=== PATIENT | female | born 1945 | race Caucasian/White ===

== ENCOUNTER → 2020-09-05 10:58 | Outpatient (BNVA) | payer BC, SELFPAY | PROVIDERS: PCP Internal Medicine; Visit Provider Internal Medicine Cardiovascular Disease | DX: I48.0 Paroxysmal atrial fibrillation (principal); I10 Essential (primary) hypertension; M79.605 Pain in left leg | CPT/HCPCS: 93005 ==

== ENCOUNTER → 2021-02-22 10:47 | Outpatient (BNVA) | payer BC, SELFPAY | PROVIDERS: PCP Internal Medicine; Referring Provider Internal Medicine; Visit Provider Internal Medicine Cardiovascular Disease | DX: I48.0 Paroxysmal atrial fibrillation (principal); I10 Essential (primary) hypertension | CPT/HCPCS: 93005 ==

== ENCOUNTER → 2021-08-21 11:04 | Outpatient (BNVA) | payer BC, SELFPAY | PROVIDERS: PCP Internal Medicine; Visit Provider Internal Medicine Cardiovascular Disease | DX: R06.02 Shortness of breath (principal); I48.0 Paroxysmal atrial fibrillation | CPT/HCPCS: 93005 ==

== ENCOUNTER → 2021-10-04 13:55 | Outpatient (REF) | payer BC, SELFPAY ==
--- NOTE | 2021-10-04 14:03 | CA_ITS ---
Transthoracic Echocardiogram Patient (Last, First, Middle): Shivani Springer, Gender: Female Date of : 1945 Age: 75 Procedure Date: 10/04/2021 Procedure Type: Transthoracic Echocardiogram Location: OP Height: 154.94 cm Weight: 54.43 kg BSA: 1.52 m2 Heart Rate: bpm BP: 125 / 80 mmHg Pc Installation Engineer: JIMMY Referring MD: Varinder Palafox MD Symptoms: R06.02 - Shortness of breath Study Quality: Fair ECG Rhythm: Sinus Conclusions: - The left ventricular systolic function is normal. The calculated ejection fraction is 60% by biplane method. - Evidence suggests grade II (moderate) diastolic dysfunction. - No obvious valvular pathology seen on this study. Findings Left Ventricle Normal left ventricular cavity size. There is normal left ventricular wall thickness. The left ventricular systolic function is normal. The calculated ejection fraction is 60% by biplane method. There is no evidence of regional wall motion abnormalities. E/E prime ratio is between 8 and 15 consistent with indeterminate filling pressures. Evidence suggests grade II (moderate) diastolic dysfunction. Right Ventricle Normal right ventricular cavity size and systolic function. Atria Both atria are normal in size. Aortic Valve There is a normal trileaflet aortic valve. There is no aortic valve stenosis. There is trace (trivial) aortic valve regurgitation. Mitral Valve The mitral valve appears normal. There is trace mitral valve regurgitation. There is no mitral valve stenosis. Pulmonic Valve The pulmonic valve was not well visualized. Tricuspid Valve Normal tricuspid valve structure. There is trace tricuspid valve regurgitation. The pulmonary artery systolic pressure is normal. Great Vessels The aortic annulus, sinuses of valsalva, asc aorta, and aortic arch are normal in size. Venous The inferior vena cava is normal in size and collapses greater than 50% with inspiration. Pericardium/Pleural There is no evidence of pericardial effusion. Recommendations, Care & Conclusions No obvious valvular pathology seen on this study. Measurements 2D Linear Measurements IVSd: 0.91 0.6-0.9/0.6-1.0 cm LVIDd: 4.11 3.9-5.3/4.2-5.9 cm LVIDd Index: 2.70 2.4-3.2/2.2-3.1 cm/m2 LVIDs: 2.88 2.0-3.6 cm LVPWd: 0.79 0.7-1.1 cm Ao Root: 2.70 2.1-3.5 cm LA Diam: 3.20 2.7-3.8/3.0-4.0 cm LAIDs Index: 2.11 1.5-2.3 cm/m2 LV Mass: 131.87 67-162/88-224 g LV Mass Index: 86.76 43-95/49-115 g/m2 LVOT Diam: 1.90 3.0+(-)1.3 cm 2D Systolic Function EF 4C: 62.10 >55% EF 2C: 59.10 >55% EF BiP: 59.80 >55% Mitral Valve MV Pk E: 0.86 MV PK A: 0.46 MV Decel Time: 154.00 E/A: 1.90 E'Lateral: 6.74 E'Medial: 8.59 E/E' Med: 10.00 E/E' Lat: 12.70 PHT: 45.00 MVA PHT: 4.89 Decel [place]: 5.56 Aortic Valve AoV Pk Joby: 1.26 AoV Mn Joby: 0.88 AoV VTI: 0.36 AoV Pk Grad: 6.00 Aov Mn Grad: 3.00 ERENDIRA Cont.VTI: 2.14 LVOT LVOT Pk Joby: 1.09 LVOT Mn Joby: 0.69 LVOT VTI: 0.27 LVOT Pk Grad: 5.00 LVOT Mn Grad: 2.00 LVOT Diam: 1.90 LVOT Area: 2.84 Diastolic Function MV Pk E: 0.86 MV Pk A: 0.46 E/A: 1.90 E'Medial: 8.59 E/E' Med: 10.00 E' Laterial: 6.74 E/E' Lat: 12.70 Right Ventricle TAPSE (mm): 24.00 TVS' Joby: 9.14 Tricuspid Valve TR Pk Joby: 2.32 TR Pk Grad: 22.00 RA Press: 3.00 RVSP: 25.00 Great Vessels Aorta Ao Root-2D: 2.70 2.0-3.7 cm Ao Asc: 3.20 2.1-3.4 cm Ao Arch: 3.10 Updated in Other Vendor System with Status of Final Drew Cason MD electronically signed on 10/06/2021 11:59:41 AM with status of Final
== END ==
LOC: HO.CARD 13:55
PROVIDERS: PCP Internal Medicine; Visit Provider Internal Medicine Cardiovascular Disease
DX: R06.02 Shortness of breath (principal); R07.9 Chest pain, unspecified
CPT/HCPCS: 93306

== ENCOUNTER → 2021-10-10 09:43 | Outpatient (REF) | payer BC, SELFPAY ==
--- NOTE | ~2021-10-10 | NM_ITS ---
Lexiscan Myocardial perfusion study Indication: Chest pain, assess for coronary disease and ischemia Technique: The patient was brought in for a Lexiscan perfusion study on 10/10/2021 and was injected 0.4 mg of Lexiscan intravenously. Within a minute of this injection 25 mCi of sestamibi was given intravenously. Images were obtained using the SPECT gamma camera interlaced with the gating device. Images were obtained in supine position. Resting perfusion study was performed on 10/11/2021. Patient was administered 25 mCi of sestamibi intravenously at rest. Images were then obtained in supine position. Total DLP 71mGy-cm. Images were processed with the software and compared side to side in short axis, horizontal long axis and vertical long axis views. FINDINGS: Raw images were reviewed. Arms down during stress. The stress perfusion study showed mildly diminished tracer uptake in the basal septum. There is improvement with CT attenuation correction and hence could be artifactual. The gated study shows normal LV systolic function with calculated LVEF of 57%. LV cavity is normal in size. The gated study shows normal wall thickening and contraction of segments. Resting study shows no significant perfusion abnormality. CT attenuation corrected images actually appear worse and most likely technical. Gating at rest reveals normal wall motion with ejection fraction at 75%. The findings are consistent with no definite reversible or fixed perfusion abnormality. DC/DC cardiolite stress test IMPRESSION: 1. Myocardial perfusion imaging study shows likely normal myocardial perfusion. No definitive findings for ischemia or infarction. 2. Gated LVEF is 57% during stress and 72% during rest. Correlate with echocardiogram. 3. Transient ischemic dilatation not present. EKG component of the test reported separately.
--- NOTE | 2021-10-10 09:47 | CA_ITS ---
Acquisition Time: 2021-10-10 09:45:31 Total Exercise Time: 00:06:20 Test Indications: Dyspnea Medications: ATENOLOL FLECAINIDE HCTZ LEVOTHYROXINE LOSARTAN PRAVASTATIN WARFARIN Protocol: SHONNA Max HR: 110 BPM 75% of Pred: 145 BPM Max BP: 154/082 mmHG Max Work Load: 7.4 METS Exercise stress test with exercise 6 min 20 sec of Shonna protocol, with mild sob, no chest discomfort, with fatigue and request to slow exercise, without arrythmia, with normotensive response to exercise, with nondiagnostic EKG for ischemia due to suboptimal heart rate. Treadmill placed in recovery and slowed to 1 MPH. Testing changed to pharmacological stress test with Lexiscan injection, without anginal symptoms, without arrythmia, with normotensive response to injection, with EKG changes suggesting of ischemia: horizontal to downsloping STs with borderline depression inferiorly, V3-V6, with ST elevation aVR with slow gradually improvement in recovery. In recovery she was treated with aminophylline 75mg IVP to reverse Lexiscan. Nuclear images pending. Test reviewed with Dr Wheeler. Referred By: Varinder Palafox Overread By: BECKY MAYFIELD
== END ==
LOC: HO.CARD 09:43
PROVIDERS: Visit Provider Internal Medicine Cardiovascular Disease
DX: R06.02 Shortness of breath (principal); R07.9 Chest pain, unspecified
CPT/HCPCS: 78452; 93017; A9500; J0280; J2785

== ENCOUNTER → 2021-11-27 13:42 | Outpatient (BNVA) | payer BC, SELFPAY | PROVIDERS: PCP Internal Medicine; Referring Provider Internal Medicine; Visit Provider Internal Medicine Cardiovascular Disease | DX: Z13.89 Encounter for screening for other disorder (principal) ==

== ENCOUNTER → 2021-12-24 14:36 | Outpatient (BNVA) | payer BC, SELFPAY | PROVIDERS: PCP Internal Medicine; Visit Provider Internal Medicine Pulmonary Disease | DX: R06.02 Shortness of breath (principal) ==

== ENCOUNTER 2022-01-22 10:48 | Outpatient (REF) | payer MEDICARE, SELFPAY ==
--- NOTE | 2022-01-22 16:34 | PFT_ITS ---
FLOWS: FEV1 92% of predicted at 1.66 L. FVC 82% of predicted at 1.98 L. FEV1 to FVC ratio of 0.83. No bronchodilator response. LUNG VOLUMES: Total lung capacity 91% of predicted at 4.22 L. Residual volume 86% of predicted at 1.87 L. Slow vital capacity 96% of predicted at 2.35 L. Expiratory reserve volume 61% of predicted at 0.29 L. Diffusion capacity is moderately decreased, diffusion capacity adjust to being mildly decreased after correction for alveolar ventilation. IMPRESSION: No obstructive or restrictive ventilatory defect. No bronchodilator response. Decreased diffusion capacity suggests emphysema. Sebastian Ibrahim MD AP/MODL / [id number]
== END 2022-01-22 10:49 | disposition home or self-care (01) ==
LOC: HO.RESP 10:48
PROVIDERS: Visit Provider Internal Medicine Pulmonary Disease
DX: R06.02 Shortness of breath (principal)
CPT/HCPCS: 94060; 94727; 94729

== ENCOUNTER → 2022-02-06 10:37 | Outpatient (BNVA) | payer MEDICARE, SELFPAY | PROVIDERS: PCP Internal Medicine; Visit Provider Internal Medicine Pulmonary Disease | DX: R06.02 Shortness of breath (principal); J43.9 Emphysema, unspecified | CPT/HCPCS: 99212 ==

== ENCOUNTER → 2022-03-04 10:51 | Outpatient (BNVA) | payer MEDICARE, SELFPAY | PROVIDERS: PCP Internal Medicine; Referring Provider Internal Medicine; Visit Provider Internal Medicine Cardiovascular Disease | DX: I48.0 Paroxysmal atrial fibrillation (principal); I10 Essential (primary) hypertension; I25.10 Atherosclerotic heart disease of native coronary artery without angina pectoris; Z79.01 Long term (current) use of anticoagulants; Z79.899 Other long term (current) drug therapy | CPT/HCPCS: 93005; 99212 ==

== ENCOUNTER → 2022-08-16 10:06 | Outpatient (BNVA) | payer MEDICARE, SELFPAY | PROVIDERS: PCP Internal Medicine; Visit Provider Internal Medicine Pulmonary Disease | DX: J43.9 Emphysema, unspecified (principal); R09.82 Postnasal drip | CPT/HCPCS: 99212 ==

== ENCOUNTER → 2022-09-09 10:57 | Outpatient (BNVA) | payer MEDICARE, SELFPAY | PROVIDERS: PCP Internal Medicine; Referring Provider Internal Medicine; Visit Provider Internal Medicine Cardiovascular Disease | DX: I48.0 Paroxysmal atrial fibrillation (principal); I25.10 Atherosclerotic heart disease of native coronary artery without angina pectoris; I10 Essential (primary) hypertension | CPT/HCPCS: 93005; 99212 ==

== ENCOUNTER 2023-03-10 10:18 | Outpatient (AMB) | payer MEDICARE, SELFPAY ==
--- NOTE | 2023-03-10 10:40 | AM.OFFVISNUR ---
Intake Intake Visit Reasons: EKG Intake Note: Routine follow up EKG. H/O afib. Director Of Clinical Trials Required: No Accompanied by: Self / Same As Patient Allergies penicillin V Allergy (Unknown, Verified 09/09/22 11:00) Unknown Followed by:: Dr. Palafox Nursing Note EKG auto-reading sinus kimberlyn rhythm w incomplete RBBB at 53 bpm. EKG similar in appearance as last EKG. EKG on Dr. Palafox's desk for review and signature Office Procedures EKG 11051-[id number], Complete Coding Level of Care Code Est Pt Level 1 (56047) Diagnoses CPT Codes EKG - CPT: 77100-Rrtlllrxxlhhehzmr, Complete ([id number]) Time Spent (min) 15
== END 2023-03-10 11:00 | disposition home or self-care (01) ==
PROVIDERS: Visit Provider Internal Medicine Cardiovascular Disease
DX: R00.1 Bradycardia, unspecified (principal); R94.31 Abnormal electrocardiogram [ECG] [EKG]
CPT/HCPCS: 93010

== ENCOUNTER → 2023-03-10 10:18 | Outpatient (BNVA) | payer MEDICARE, SELFPAY | PROVIDERS: Visit Provider Internal Medicine Cardiovascular Disease | DX: I45.19 Other right bundle-branch block (principal) | CPT/HCPCS: 93005 ==

== ENCOUNTER 2023-08-21 11:40 | Outpatient (AMB) | payer MEDICARE, SELFPAY ==
--- NOTE | 2023-08-21 11:46 | MHC.OFFVIS ---
Intake Vital Signs 08/21/23 11:47 Height 5 ft 1 in Weight 120 lb BMI 22.7 BP 142/77 H Blood Pressure Location Lt brachial Position Sitting Pulse 59 Pulse Source Doppler Pulse Oximetry (%) 98 Oxygen Delivery Method Room Air Intake Visit Reasons: jay Allergies penicillin V Allergy (Unknown, Verified 08/21/23 11:49) Unknown HPI jay HPI Details 77-year-old lady, former 15-20 pack-year smoker, quit 20 years prior, with underlying history of paroxysmal AFib, now followed for mild emphysema and postnasal drip. Patient uses albuterol MDI rarely. She was not able to use nasal ipratropium secondary to prior significant nasal bleeds. She continues to complain of significant postnasal drip. [facility] Medical History HTN (hypertension) Paroxysmal atrial fibrillation Family History Father Cancer Mother No problems noted. Review of Systems Const Denies daytime sleepiness, Denies excessive sweating, Denies fatigue, Denies fever(s), Denies lethargy, Denies malaise, Denies night sweats, Denies snoring and Denies weight loss Eyes Denies blurry vision and Denies itchy eyes ENT Denies nasal congestion, Reports post nasal drip, Denies sinus pain, Denies sinus pressure and Denies other ( Thrush) Card Denies chest pain, Denies pedal edema, Denies dyspnea, Denies orthopnea and Denies paroxysmal nocturnal dyspnea Resp Denies cough, Denies hemoptysis, Denies excessive phlegm production, Denies dyspnea, Denies snoring and Denies wheezing GI Denies abdominal pain and Denies heartburn Musc Denies myalgias, Denies arthralgias and Denies joint swelling Skin/Breast Denies rash Neuro Denies memory loss and Denies seizure-like activity Psych Denies abnormal sleep pattern, Denies anxiety and Denies memory loss Endo Denies excessive sweating, Denies fatigue and Denies heat intolerance George/Lymph Denies easy bruising Aller/Immun Denies itchy eyes, Denies seasonal rhinorrhea and Denies wheezing Physical Exam Vital Signs: Last Vital Signs Pulse 59 08/21/23 11:47 BP 142/77 H 08/21/23 11:47 Pulse Ox 98 01/11/24 11:47 Oxygen Delivery Method Room Air 08/21/23 11:47 BMI result Body Mass Index 22.7 Const General: no acute distress and alert Nutritional Appearance: not obese Orientation/consciousness: Other orientation findings ( oriented) HEENT Head: Yes atraumatic Eyes General: appearance normal, both eyes and all related structures Sclerae: sclerae normal EOM: EOMs intact bilaterally Neck Neck: Yes supple Lymphatic: no lymphadenopathy noted Resp Effort & Inspection: normal respiratory effort and no use of accessory muscles Auscultation: clear to auscultation bilaterally Cardio Rate: regular rate Rhythm: regular rhythm Heart sounds: no gallops, no murmurs and no rubs Skin General skin exam: other ( warm) Extrem General: No clubbing, No cyanosis and No edema Assessment & Plan Assessment & Plan (1) Emphysema lung: Code(s): J43.9 - Emphysema, unspecified Plan: Underlying mild emphysema with minimum symptoms. Continue on as needed albuterol MDI. (2) Postnasal drip: Code(s): R09.82 - Postnasal drip Plan: Patient unable to tolerate nasal ipratropium. Will try Flonase. Medications: New fluticasone propionate 50 mcg/actuation (Flonase Allergy Relief) administer into each nostril 1 spray intranasal DAILY 30 days 16 grams 6RF Discontinued ipratropium bromide administer into each nostril Discontinued Reason: Doctor's Order 2 sprays intranasal TID 30 days PRN 15 mL 6RF allergy symptoms Coding Level of Care Code Est Pt Level 4 (71700) Diagnoses Emphysema lung J43.9 Postnasal drip R09.82
[2023-08-21 11:47] VITALS: BP 142/77; PULSE 59; O2SAT 98; BMI 22.7
== END 2023-08-21 12:05 | disposition home or self-care (01) ==
PROVIDERS: PCP Internal Medicine; Visit Provider Internal Medicine Pulmonary Disease
DX: J43.9 Emphysema, unspecified (principal); R09.82 Postnasal drip
CPT/HCPCS: 99214

== ENCOUNTER → 2023-08-21 11:40 | Outpatient (BNVA) | payer MEDICARE, SELFPAY | PROVIDERS: PCP Internal Medicine; Visit Provider Internal Medicine Pulmonary Disease | DX: J43.9 Emphysema, unspecified (principal); R09.82 Postnasal drip | CPT/HCPCS: 99212 ==

== ENCOUNTER → 2023-08-25 10:43 | Outpatient (REF) | payer MEDICARE, SELFPAY ==
--- NOTE | 2023-08-25 10:45 | CA_ITS ---
Transthoracic Echocardiogram Patient (Last, First, Middle): Shivani Springer L Gender: Female Date of : 1945 Age: 77 Procedure Date: 08/25/2023 Procedure Type: Transthoracic Echocardiogram Location: OP Height: 154.94 cm Weight: 54.43 kg BSA: 1.52 m2 Heart Rate: bpm BP: 140 / 75 mmHg Facing Baster Jumpbasting: JIMMY Referring MD: Varinder Palafox MD Symptoms: I48.0 - Paroxysmal atrial fibrillation Study Quality: Fair ECG Rhythm: Sinus Conclusions: - The left ventricular systolic function is normal. The calculated ejection fraction is 57% by biplane method. - Evidence suggests grade II (moderate) diastolic dysfunction. - No obvious valvular pathology seen on this study. Findings Left Ventricle Normal left ventricular cavity size. There is normal left ventricular wall thickness. The left ventricular systolic function is normal. The calculated ejection fraction is 57% by biplane method. There is no evidence of regional wall motion abnormalities. Evidence suggests grade II (moderate) diastolic dysfunction. LV peak GLS -17.2%. Right Ventricle Normal right ventricular cavity size. There is low normal right ventricular systolic function. Atria The left atrium is normal in size. The right atrium is mildly dilated. Aortic Valve There is a normal trileaflet aortic valve. There is no aortic valve stenosis. There is no aortic valve regurgitation. Mitral Valve The mitral valve appears normal. There is mild mitral valve regurgitation. There is no mitral valve stenosis. Pulmonic Valve The pulmonic valve is likely normal. Tricuspid Valve Normal tricuspid valve structure. There is mild tricuspid valve regurgitation. There is no evidence of pulmonary hypertension. Great Vessels The asc aorta is normal in size. Venous The inferior vena cava is normal in size and collapses greater than 50% with inspiration. Pericardium/Pleural There is no evidence of pericardial effusion. Prior Study Comparison No significant change compared to prior study dated: 10/04/2021. Recommendations, Care & Conclusions No obvious valvular pathology seen on this study. Measurements 2D Linear Measurements IVSd: 0.72 0.6-0.9/0.6-1.0 cm LVIDd: 4.36 3.9-5.3/4.2-5.9 cm LVIDd Index: 2.87 2.4-3.2/2.2-3.1 cm/m2 LVIDs: 2.96 2.0-3.6 cm LVPWd: 0.75 0.7-1.1 cm LA Diam: 2.50 2.7-3.8/3.0-4.0 cm LAIDs Index: 1.64 1.5-2.3 cm/m2 LV Mass: 120.10 67-162/88-224 g LV Mass Index: 79.01 43-95/49-115 g/m2 LVOT Diam: 1.80 3.0+(-)1.3 cm 2D Systolic Function EF 4C: 59.50 >55% EF 2C: 57.20 >55% EF BiP: 57.30 >55% Mitral Valve MV Pk E: 0.91 MV PK A: 0.42 MV Decel Time: 151.00 E/A: 2.10 E'Lateral: 7.40 E'Medial: 5.98 E/E' Med: 15.20 E/E' Lat: 12.30 PHT: 44.00 MVA PHT: 5.00 [place]: 6.00 Aortic Valve AoV Pk Joby: 1.19 AoV Mn Joby: 0.85 AoV VTI: 0.34 AoV Pk Grad: 6.00 Aov Mn Grad: 3.00 ERENDIRA Cont.VTI: 1.58 LVOT LVOT Pk Joby: 0.95 LVOT Mn Joby: 0.58 LVOT VTI: 0.21 LVOT Pk Grad: 4.00 LVOT Mn Grad: 2.00 LVOT Diam: 1.80 LVOT Area: 2.54 Diastolic Function MV Pk E: 0.91 MV Pk A: 0.42 E/A: 2.10 E'Medial: 5.98 E/E' Med: 15.20 E' Laterial: 7.40 E/E' Lat: 12.30 Right Ventricle TAPSE (mm): 25.60 TVS' Joby: 9.57 Tricuspid Valve TR Pk Joby: 2.84 TR Pk Grad: 32.00 RA Press: 3.00 RVSP: 35.00 Great Vessels Aorta Sinus of Valsalva: 2.75 2.0-3.5 cm Ao Asc: 3.30 2.1-3.4 cm Updated in Other Vendor System with Status of Final Drew Cason MD electronically signed on 08/26/2023 2:40:26 PM with status of Final
== END ==
LOC: HO.CARD 10:43
PROVIDERS: PCP Internal Medicine; Visit Provider Internal Medicine Cardiovascular Disease
DX: I48.0 Paroxysmal atrial fibrillation (principal)
CPT/HCPCS: 93306; 93356

== ENCOUNTER → 2023-08-25 10:45 | Outpatient (BNV) | payer MEDICARE, SELFPAY | PROVIDERS: PCP Internal Medicine; Visit Provider Internal Medicine | DX: I36.1 Nonrheumatic tricuspid (valve) insufficiency (principal); I48.0 Paroxysmal atrial fibrillation | CPT/HCPCS: 93306 ==

== ENCOUNTER 2023-09-15 10:53 | Outpatient (REF) | payer MEDICARE, SELFPAY ==
[2023-09-15 12:18] LABS: Hematocrit 38.9 % (37.0-47.0); Mean Corpuscular HGB Conc 33.4 g/dl (31.0-35.0); Mean Corpuscular Volume 95.8 fL (80.0-98.0); Mean Platelet Volume 11.4 fL (9.4-12.3); Platelet Count 184 X10*3/uL (160-400); Red Blood Count 4.06 X10*6/uL (4.20-5.50); Red Cell Distribution Width 13.6 % (11.0-16.0); White Blood Count 5.8 X10*3/uL (4.8-10.8)
[2023-09-15 12:49] LABS: Anion Gap 12 (12-20); Blood Urea Nitrogen 27 mg/dL (9-16); Calcium 9.9 mg/dL (8.4-10.2); Carbon Dioxide 27 mmol/L (22-29); Chloride 104 mmol/L (96-108); Estimated Glomerular Filt Rate 54; Glucose Random 89 mg/dL (60-115); Potassium 3.8 mmol/L (3.3-5.1); Sodium 139 mmol/L (135-145)
== END 2023-09-15 10:54 | disposition home or self-care (01) ==
LOC: HO.LAB 10:53
PROVIDERS: PCP Internal Medicine; Visit Provider Internal Medicine Cardiovascular Disease
DX: I48.0 Paroxysmal atrial fibrillation (principal); I10 Essential (primary) hypertension; I25.10 Atherosclerotic heart disease of native coronary artery without angina pectoris; Z79.01 Long term (current) use of anticoagulants
CPT/HCPCS: 36415; 80048; 85027; 93005; 99212

== ENCOUNTER 2023-09-15 10:53 | Outpatient (AMB) | payer MEDICARE, SELFPAY ==
[2023-09-15 11:13] VITALS: BP 120/78; PULSE 75; BMI 22.9
--- NOTE | 2023-09-15 11:13 | MHC.OFFVIS ---
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 She continues to have intermittent episodes of atrial fibrillation usually induced by stress and anxiety. She does get typical symptoms and is highly symptomatic. She then takes an additional 100 mg of flecainide but with that the symptoms still last for about 8-9 hours. Recent echocardiogram shows normal LV systolic function with grade 2 diastolic dysfunction. [facility] Medical History HTN (hypertension) Paroxysmal atrial fibrillation Family History Father Cancer Mother No problems noted. Review of Systems Const Denies chills, Denies fatigue, Denies fever(s), Denies frequent falls, Denies weakness, Denies weight gain and Denies weight loss ENT Denies dizziness Card Denies chest pain, Denies leg edema, Denies lightheadedness, Denies palpitations, Denies dyspnea, Denies dyspnea on exertion, Denies orthopnea and Denies other (loss of consciousness) Resp Denies cough, Denies dyspnea and Denies dyspnea on exertion GI Denies hematochezia and Denies change in stool character Musc Denies abnormal gait, Denies muscle weakness, Denies numbness, Denies radiating pain into limb and Denies tingling Neuro Denies abnormal gait, Denies dizziness, Denies frequent falls, Denies numbness, Denies tingling and Denies weakness Endo Denies fatigue and Denies palpitations Physical Exam Vital Signs: Last Vital Signs Pulse 75 09/15/23 11:13 BP 120/78 09/15/23 11:13 BMI result Body Mass Index 22.9 Const General: cooperative, comfortable, no acute distress, alert, awake and well groomed Nutritional Appearance: thin Orientation/consciousness: patient oriented x3 Limitations: no limitations Neck Neck: Yes trachea midline, Yes supple and Yes no JVD Resp Effort & Inspection: normal respiratory effort Auscultation: clear to auscultation bilaterally and diminished lung sounds Cardio Jugular venous distension: no JVD Palpation: normal PMI Rate: regular rate Rhythm: regular rhythm Heart sounds: S1 normal heart sound present, S2 normal heart sound present, no click, no gallops, no murmurs and no rubs GI Auscultation: normal bowel sounds Neuro General: patient oriented x3 and no focal motor deficits Extrem General: Yes no clubbing, cyanosis or edema Psych Appearance: grossly normal Office Procedures EKG Details: EKG shows normal sinus rhythm with first-degree AV block with incomplete right bundle-branch block 05401-[id number], Complete Assessment & Plan Assessment & Plan (1) Paroxysmal atrial fibrillation: Code(s): I48.0 - Paroxysmal atrial fibrillation Plan: Paroxysmal atrial fibrillation with intermittent episodes of atrial fibrillation which are symptomatic but not long-lasting. Induced by stress and anxiety related to it. Discussed about stress mitigation strategies. Continue pill in the pocket approach with flecainide. If she is more frequent episodes of episode lasting longer than 24 hours advised to call my office. We discussed about potentially increasing flecainide therapy to reduce recurrence although with no pill in the pocket approach at that point time. She was not quite excited about it. Will monitor clinically. Avoidance of stimulants was discussed. Advised to continue concomitant atenolol therapy. Continue full oral anticoagulation, currently on warfarin therapy. She is wanting to switch to direct oral anticoagulant therapy. Will prescribe her a printed script and she would like to research it. Will require baseline blood work for the same. (2) CAD (coronary artery disease): Code(s): I25.10 - Atherosclerotic heart disease of chemehuevi coronary artery without angina pectoris Plan: Nonobstructive CAD without any obvious symptoms. No interventions required at this point in time. Discussed with the about management. Continue aggressive blood pressure control which is currently well optimized. Currently on statin therapy. Target goal LDL less than 70 mg/dL being pursue through office. No need for aspirin therapy as patient is already on full oral anticoagulation therapy. (3) HTN (hypertension): Code(s): I10 - Essential (primary) hypertension Plan: Hypertension with underlying diastolic dysfunction without any signs or symptoms of heart failure. Blood pressure is currently well optimized advised to monitor for signs and symptoms of heart failure report to me. Salt loading to be avoided. Monitor blood pressure intermittently at home. Continue maintain activity level as tolerated. Will follow up in the clinic in 6 months for EKG in 1 year with me. Thank you for allowing me to partake in the care Orders: Orders Basic Metabolic Panel Today I48.0 - Paroxysmal atrial fibrillation Complete Blood Count no Diff Today I48.0 - Paroxysmal atrial fibrillation Medications: New apixaban (Eliquis) 5 mg PO BID 60 tabs 5RF Coding Level of Care Code Est Pt Level 4 (99852) Diagnoses Paroxysmal atrial fibrillation I48.0 CAD (coronary artery disease) I25.10 HTN (hypertension) I10 CPT Codes EKG - CPT: 56472-[id number], Complete ([id number])
== END 2023-09-15 11:48 | disposition home or self-care (01) ==
PROVIDERS: Visit Provider Internal Medicine Cardiovascular Disease
DX: I48.0 Paroxysmal atrial fibrillation (principal); I25.10 Atherosclerotic heart disease of native coronary artery without angina pectoris; I10 Essential (primary) hypertension
CPT/HCPCS: 93010; 99214

== ENCOUNTER → 2024-03-18 10:58 | Outpatient (BNVA) | payer MEDICARE, SELFPAY | PROVIDERS: PCP Internal Medicine; Visit Provider Internal Medicine Cardiovascular Disease ==

== ENCOUNTER → 2024-03-25 10:44 | Outpatient (BNVA) | payer MEDICARE, SELFPAY | PROVIDERS: PCP Internal Medicine; Visit Provider Internal Medicine Cardiovascular Disease ==

== ENCOUNTER 2024-08-25 11:21 | Outpatient (AMB) | payer MEDICARE, SELFPAY ==
--- NOTE | 2024-08-25 11:22 | A.OFFVIS_ITS ---
Vital Signs 08/25/24 11:23 Height 5 ft 1 in Weight 121 lb BMI 22.9 BP 132/67 Blood Pressure Location Lt brachial Position Sitting Pulse 59 Pulse Source Doppler Pulse Oximetry (%) 98 Oxygen Delivery Method Room Air Intake Visit Reasons: STRONG Allergies penicillin V Allergy (Unknown, Verified 08/25/24 11:29) Unknown lisinopril [From Zestril] Adverse Reaction (Intermediate, Verified 08/25/24 11:29) cough HPI HPI STRONG: Details: 78-year-old lady, former 15-20 pack-year smoker, quit 20 years prior, with underlying history of paroxysmal AFib, now followed for mild emphysema and postnasal drip. She denies recent exacerbations. She tried Flonase however it did not significantly change her postnasal drip symptoms. Patient states that she is slowly developing worsening dyspnea. Patient did try using albuterol multiple times with essentially no effect on her dyspnea. [facility] Medical History HTN (hypertension) Paroxysmal atrial fibrillation Family History Father Cancer Mother No problems noted. Review of Systems Const Denies daytime sleepiness, Denies excessive sweating, Denies fatigue, Denies fever(s), Denies lethargy, Denies malaise, Denies night sweats, Denies snoring and Denies weight loss Eyes Denies blurry vision and Denies itchy eyes ENT Denies nasal congestion, Denies post nasal drip, Denies sinus pain, Denies sinus pressure and Denies other ( Thrush) Card Denies chest pain, Denies pedal edema, Denies dyspnea, Denies orthopnea and Denies paroxysmal nocturnal dyspnea Resp Denies cough, Denies hemoptysis, Denies excessive phlegm production, Denies dyspnea, Denies snoring and Denies wheezing GI Denies abdominal pain and Denies heartburn Musc Denies myalgias, Denies arthralgias and Denies joint swelling Skin/Breast Denies rash Neuro Denies memory loss and Denies seizure-like activity Psych Denies abnormal sleep pattern, Denies anxiety and Denies memory loss Endo Denies excessive sweating, Denies fatigue and Denies heat intolerance George/Lymph Denies easy bruising Aller/Immun Denies itchy eyes, Denies seasonal rhinorrhea and Denies wheezing Physical Exam Vital Signs: Last Vital Signs Pulse 59 08/25/24 11:23 BP 132/67 08/25/24 11:23 Pulse Ox 98 08/25/24 11:23 Oxygen Delivery Method Room Air 08/25/24 11:23 BMI result Body Mass Index 22.9 Const General: no acute distress and alert Nutritional Appearance: not obese Orientation/consciousness: Other orientation findings ( oriented) HEENT Head: Yes atraumatic Eyes General: appearance normal, both eyes and all related structures Sclerae: sclerae normal EOM: EOMs intact bilaterally Neck Neck: Yes supple Lymphatic: no lymphadenopathy noted Resp Effort & Inspection: normal respiratory effort and no use of accessory muscles Auscultation: clear to auscultation bilaterally Cardio Rate: regular rate Rhythm: regular rhythm Heart sounds: no gallops, no murmurs and no rubs Skin General skin exam: other ( warm) Extrem General: No clubbing, No cyanosis and No edema Assessment & Plan Assessment & Plan (1) Emphysema lung: Code(s): J43.9 - Emphysema, unspecified Category: Medical Plan: Slowly worsening symptoms of dyspnea with no response to albuterol, appears to be more cardiac in etiology. Will try on empiric Anoro. Continue albuterol MDI. (2) Postnasal drip: Code(s): R09.82 - Postnasal drip Category: Medical Plan: Suboptimal response to ipratropium Flonase. Continue as necessary. Medications: New umeclidinium-vilanterol 62.5-25 mcg/actuation (Anoro Ellipta) 1 inh inhalation DAILY 1 ea 6RF Coding Level of Care Code Est Pt Level 4 (80334) Diagnoses Emphysema lung J43.9 Postnasal drip R09.82
[2024-08-25 11:23] VITALS: BP 132/67; PULSE 59; O2SAT 98; BMI 22.9
== END 2024-08-25 11:43 | disposition home or self-care (01) ==
PROVIDERS: PCP Internal Medicine; Visit Provider Internal Medicine Pulmonary Disease
DX: J43.9 Emphysema, unspecified (principal); R09.82 Postnasal drip
CPT/HCPCS: 99214

== ENCOUNTER → 2024-08-25 11:21 | Outpatient (BNVA) | payer MEDICARE, SELFPAY | PROVIDERS: PCP Internal Medicine; Visit Provider Internal Medicine Pulmonary Disease | DX: J43.9 Emphysema, unspecified (principal); R09.82 Postnasal drip; Z87.891 Personal history of nicotine dependence | CPT/HCPCS: 99212 ==

== ENCOUNTER 2024-09-28 11:14 | Outpatient (AMB) | payer MEDICARE, SELFPAY ==
[2024-09-28 11:16] VITALS: BP 128/80; PULSE 57; BMI 22.9
--- NOTE | 2024-09-28 11:16 | A.OFFVIS_ITS ---
Vital Signs 09/28/24 11:16 Height 5 ft 1 in Weight 121 lb 4.068 oz BMI 22.9 BP 128/80 Blood Pressure Location Lt brachial Position Sitting Pulse 57 Intake Visit Reasons: 1 yr w/ ekg f/up Intake Note: 1 year follow-up with ekg c/o sob with little activity and pain under left breast Device Processing Engineer Required: No Allergies penicillin V Allergy (Unknown, Verified 08/25/24 11:29) Unknown lisinopril [From Zestril] Adverse Reaction (Intermediate, Verified 08/25/24 11:29) cough Medication List - Last Reconciled 09/28/24 by Varinder Palafox MD albuterol sulfate 90 mcg/actuation 2 puffs inhalation Q4-6H PRN amlodipine (Norvasc) 5 mg PO DAILY atenolol 100 mg PO DAILY flecainide 100 mg PO Q12H hydrochlorothiazide 25 mg PO DAILY levothyroxine 125 mcg PO DAILY losartan 50 mg PO BID pravastatin 80 mg PO BEDTIME umeclidinium-vilanterol 62.5-25 mcg/actuation (Anoro Ellipta) 1 inh inhalation DAILY warfarin 2.5 mg PO BEDTIME HPI Comments Details: Shivani comes for follow-up. She has no new cardiac symptoms except for exertional shortness of breath. She has been tried on different inhaler therapy in seems to not make any difference. No exertional chest pain. Has intermittent episodes of chest pain below her left breast which is reproducible and painful with touch. Denies any prolonged palpitation irregular heartbeat. Occasional orthostatic lightheadedness. No syncopal episodes. No heart failure symptoms. Takes all her medications. No bleeding issues or neurologic events. [facility] Medical History Paroxysmal atrial fibrillation HTN (hypertension) Family History Father Cancer Mother No problems noted. Review of Systems Const Denies chills, Denies fatigue, Denies fever(s), Denies frequent falls, Denies weakness, Denies weight gain and Denies weight loss ENT Denies dizziness Card Denies chest pain, Denies leg edema, Denies lightheadedness, Denies pal pitations, Denies dyspnea, Denies dyspnea on exertion, Denies orthopnea and Denies other (loss of consciousness) Resp Denies cough, Denies dyspnea and Denies dyspnea on exertion GI Denies hematochezia and Denies change in stool character Musc Denies abnormal gait, Denies muscle weakness, Denies numbness, Denies radiating pain into limb and Denies tingling Neuro Denies abnormal gait, Denies dizziness, Denies frequent falls, Denies numbness, Denies tingling and Denies weakness Endo Denies fatigue and Denies palpitations Physical Exam Vital Signs: Last Vital Signs Pulse 57 09/28/24 11:16 BP 128/80 09/28/24 11:16 BMI result Body Mass Index 22.9 Const General: cooperative, comfortable, no acute distress, alert, awake and well groomed Nutritional Appearance: thin Orientation/consciousness: patient oriented x3 Limitations: no limitations Neck Neck: Yes trachea midline, Yes supple and Yes no JVD Resp Effort & Inspection: normal respiratory effort Auscultation: clear to auscultation bilaterally and diminished lung sounds Cardio Jugular venous distension: no JVD Palpation: normal PMI Rate: regular rate Rhythm: regular rhythm Heart sounds: S1 normal heart sound present, S2 normal heart sound present, no click, no gallops, no murmurs and no rubs GI Auscultation: normal bowel sounds Neuro General: patient oriented x3 and no focal motor deficits Extrem General: Yes no clubbing, cyanosis or edema Psych Appearance: grossly normal Office Procedures EKG Details: EKG shows normal sinus rhythm at 57 beats per minute with first-degree AV block with nonspecific intraventricular conduction delay, unchanged [id number], Complete Assessment & Plan Assessment & Plan (1) Paroxysmal atrial fibrillation: Code(s): I48.0 - Paroxysmal atrial fibrillation Category: Medical Plan: Highly symptomatic paroxysmal atrial fibrillation has remained suppressed on flecainide therapy. Has done well with the same. Will require concomitant AV vannesa blocking agent, currently on atenolol. Currently on full oral anticoagulation with warfarin being followed by [facility]. Maintain target INR between 2 and 3. (2) CAD (coronary artery disease): Code(s): I25.10 - Atherosclerotic heart disease of [place] coronary artery without angina pectoris Category: Medical Plan: CAD, nonobstructive unlikely to be causing her symptoms of chest pain which is very atypical and appears to be musculoskeletal. Exertional shortness of breath related to pulmonary parenchymal disease. At this point time no further cardiac workup is indicated. Continue aggressive vascular risk factor modification. Blood pressure is currently well optimized. Should be on statin therapy to target goal LDL less than 70 mg/dL. Will follow up in the clinic in 6 months time, sooner p.r.n. partake in his care Coding Level of Care Code Est Pt Level 4 (99686) Complex EM visit Add On G2211 Diagnoses Paroxysmal atrial fibrillation I48.0 CAD (coronary artery disease) I25.10 CPT Codes EKG - CPT: 33295-[id number], Complete ([id number])
--- OUTSIDE RECORDS SUMMARY | 2024-09-28 12:29 | XMS_ITS ---
Author Organization [facility] Address [address] [place] [address] Care Team Providers Care Sap Sd Analyst Name Role Phone Darryl CASILLAS, Luigi Primary Care Provide r You Bhatti [phone] ALLERGIES Allergen (clinical drug ingredient) Drug/Non Drug Allergy documented on EMR Reaction Allergy Type Onset Date Status Penicillin Unknown Drug Allergy Active lisinopril Zestril Unknown Drug Allergy Active REASON FOR VISIT Patient presents today for colitis MEDICATIONS Medication SIG (Take, Route, Frequency, Duration) Notes Start Date End Date Status Osteo Bi-Flex Regular Strength Active Calcium Active Budesonide 3mg 1 every other day Active amLODIPine Besylate 5 MG TAKE 1 TABLET B Y MOUTH EVERY DAY Oral for 90 Active Advil Active Flecainide Acetate 100 MG 1 tablet Orall y every 12 hrs Active tiZANidine HCl 4 MG 1 tablet as needed Orally every 8 hrs uses for sleep Active Magnesium 400 mg Act litzy Budesonide 3 MG take one capsule by mouth every other day oral 1 capsule QOD for 200 days Active Losartan Potassium 50 mg Active Levothyroxine Sodium 112mcg Active Atorvastatin Calcium 40 MG 1 tablet Oral ly Once a day Active Warfarin Sodium 2.5 mg Active Atenolol 100 mg Acti ve hydroCHLOROthiazide 25 mg Active SOCIAL HISTORY Tobacco Use: Social History Observation Description Date Details (start date - stop date) Former Smoker NA - NA Sex Assigned At : Social History Observation Description Sex Assigned At Unknown Tobacco Use/Smoking Question Answer Notes Patient is a former smoker How long has it been since you last smoked? > 10 years VITAL SIGNS BMI 23.05 kg/m2 05/06/2024 Blood pressure systolic 00 mm Hg 05/06/20 24 Blood pressure diastolic 00 mm Hg 024 Height 60.5 in 05/06/2024 Weight 120 lbs 05/06/2024 Encounters Encounter Location Date Provider Diagnosis [facility] [address] [place] [address] 05/06/2024 You Hargrove Microscopic colitis K52.89 ASSESSMENTS Encounter Date Diagnosis Assessment Notes Treatment Notes Treatment Clinical Notes 05/06/2024 Microscopic colitis (ICD-10 - K52.89) Continue the one 3mg Budesonide every orther day. PLAN OF TREATMENT Treatment Notes Assessment Notes Microscopic colitis Continue the one 3mg Budesonide every orther day. Next Appt Details Follow Up: 1 Year, Reason: Provider Name:You Hargrove , 05/10/2025 11:00:00 AM, [address], [address], [place], [address], Progress Notes * Examination Category Sub-Category Detail Notes General Examination GENERAL APPEARANCE: pleasant , well nourished, well developed, in no acute distress EYES: sclera non-icteric NECK/THYROID: no cervical lymphade nopathy, neck supple HEART: S1, S2 normal LUNGS: clear to auscultatio n bilaterally ABDOMEN: normal bowel sounds, no guarding or rigidity, no hepatosplenomegaly, no masses palpable, soft, nontender, nondistended. NEUROLOGIC: alert and oriented SKIN: nonjaundiced, no spi sriram angiomata. EXTREMITIES: no edema ORAL CAVITY: mucosa moist
--- OUTSIDE RECORDS SUMMARY | 2024-09-28 12:29 | XMS_ITS ---
Author Organization [facility] Address [address] [place] [address] Care Team Providers Care Watch And Clock Repair Clerk Name Role Phone Darryl CASILLAS, Formerly [facility]amed [facility] Primary Care Provide r You Bhatti [phone] REASON FOR VISIT refill request for budesonide-needs a paper Rx Encounters Encounter Location Date Provider Diagnosis [facility] [address] [place] [address] [address] [place] [address] 09/17/2023 You Hargrove PLAN OF TREATMENT Next Appt Details Provider Name:You Hargrove , 05/10/2025 11:00:00 AM, [address] [place] [address], [address], [place], [address],
--- OUTSIDE RECORDS SUMMARY | 2024-09-28 12:30 | XMS_ITS | Patient Health Record ---
Author Organization [facility] Address [address] [place] [address] Care Team Providers Care Cnmt Name Role Phone Darryl CASILLAS, Luigi Primary Care Provide r You Bhatti [phone] ALLERGIES Allergen (clinical drug ingredient) Drug/Non Drug Allergy documented on EMR Reaction Allergy Type Onset Date Status Penicillin Unknown Drug Allergy Active lisinopril Zestril Unknown Drug Allergy Active REASON FOR REFERRAL No Information MEDICATIONS Medication SIG (Take, Route, Frequency, Duration) Notes Start Date End Date Status Flecainide Acetate 100 MG 1 tablet Orall y every 12 hrs Active tiZANidine HCl 4 MG 1 tablet as needed Orally every 8 hrs uses for sleep Active Magnesium 400 mg Act litzy Levothyroxine Sodium 112mcg Active Osteo Bi-Flex Regular Strength Active Atorvastatin Calcium 40 MG 1 tablet Oral ly Once a day Active Calcium Active Budesonide 3mg 1 every other day Active Budesonide 3 MG take one capsule by mouth every other day oral 1 capsule QOD for 200 days Active Losartan Potassium 50 mg Active Warfarin Sodium 2.5 mg Active Atenolol 100 mg Acti ve amLODIPine Besylate 5 MG TAKE 1 TABLET B Y MOUTH EVERY DAY Oral for 90 Active hydroCHLOROthiazide 25 mg Active Advil Active IMMUNIZATIONS Vaccine Route Administration Date Status Comme nts Influenza Unknown 05/17/2020 Administered Influenza Unknown 04/11/2021 Administered Influenza Unknown 04/30/2022 Administered SOCIAL HISTORY Tobacco Use: Social History Observation Description Date Details (start date - stop date) Former Smoker NA - NA Sex Assigned At : Social History Observation Description Sex Assigned At Unknown Tobacco Use/Smoking Question Answer Notes Patient is a former smoker How long has it been since you last smoked? > 10 years PROBLEMS Problem Type ICD Code Onset Dates Problem Status W/U Status Risk SNOMED Code Notes Problem Encounter for screening for malignant neoplasm of colon (Z12.11) Active confirmed 124136357 Problem Microscopic colitis (K52.89) Active confirmed 663639579 Problem Lymphocytic colitis (K52.832) Active confirmed 29910178 VITAL SIGNS Blood pressure diastolic 00 mm Hg 05/06/2024 Height 60.5 in 05/06/2024 Blood pressure systolic 00 mm Hg 05/06/2024 Weight 120 lbs 05/06/2024 BMI 23.05 kg/m2 05/06/2024 Encounters Encounter Location Date Provider Diagnosis [facility] [address] [place] [address] 05/06/2024 You Hargrove Microscopic colitis K52.89 [facility] [address] [place] [address] 07/29/2024 You Hargrove ASSESSMENTS Encounter Date Diagnosis Assessment Notes Treatment Notes Treatment Clinical Notes 05/06/2024 Microscopic colitis (ICD-10 - K52.89) Continue the one 3mg Budesonide every er day. PLAN OF TREATMENT Next Appt Details Provider Name:You Hargrove , 05/10/2025 11:00:00 AM, [address] [place] [address], [address], [place], [address], Insurance Providers Payer Name Payer Address Payer Phone Subscriber Number Group Number Insured Name Patient Relationship to Insured Coverage Start Date Coverage End Date [address] [id number] BRADLEY ESPOSITO Self - patient is the insured MEDICAL (GENERAL) HISTORY Medical History History ICD Code Microscopic colitis--diagnos ed in 03/2008-diagnosed via colonoscopy in 03/2008; had a neg. colonoscopy in 2003. She has been treated with various mesalamine products without improvement, and attempts at completely stopping the budesonide were associated with worsening symptoms of the colitis. Hypertension Hypothyroidism A fib- Dr. Palafox Hyperlipidemia Denies [place],DM,CVA,Lung disease,renal dise ase Bone density study in May [address] Wilkes Negative screening colonoscopy in 10/2018 Arthritis Macular degeneration Emphysema-sees Dr. Patrice Surgical History Surgery Date(Month/Year) D&C Nasal septoplasty Subtotal thyroidectomy Cataracts Left carpal tunnel 05/12/2023
--- OUTSIDE RECORDS SUMMARY | 2024-09-28 12:30 | XMS_ITS ---
Author Organization [facility] Address [address] [place] [address] Care Team Providers Care Kettle Firer Name Role Phone Darryl CASILLAS, [facility] Primary Care Provide r You Bhatti [phone] REASON FOR VISIT entocort Encounters Encounter Location Date Provider Diagnosis [facility] [address] [place] [address] 07/29/2024 You Hargrove PLAN OF TREATMENT Next Appt Details Provider Name:You Hargrove , 05/10/2025 11:00:00 AM, [address], [address], [place], [address],
== END 2024-09-28 11:44 | disposition home or self-care (01) ==
PROVIDERS: PCP Internal Medicine; Visit Provider Internal Medicine Cardiovascular Disease
DX: I48.0 Paroxysmal atrial fibrillation (principal); I25.10 Atherosclerotic heart disease of native coronary artery without angina pectoris
CPT/HCPCS: 93010; 99214; G2211

== ENCOUNTER → 2024-09-28 11:14 | Outpatient (BNVA) | payer MEDICARE, SELFPAY | PROVIDERS: PCP Internal Medicine; Visit Provider Internal Medicine Cardiovascular Disease | DX: I48.0 Paroxysmal atrial fibrillation (principal); R07.9 Chest pain, unspecified; I25.10 Atherosclerotic heart disease of native coronary artery without angina pectoris | CPT/HCPCS: 93005; 99212 ==

== ENCOUNTER 2025-01-14 12:44 | Outpatient (AMB) | payer MEDICARE, SELFPAY ==
--- OUTSIDE RECORDS SUMMARY | 2025-01-14 12:46 | XMS_ITS ---
Author Organization [facility] Address [address] [place] [address] Care Team Providers Care Customer Service Teller Name Role Phone Darryl CASILLAS, [facility] [place] [facility] [place] Primary Care Provide r You Bhatti [phone] REASON FOR VISIT refill request for budesonide-needs a paper Rx Encounters Encounter Location Date Provider Diagnosis [facility] [address] [place] [address] 09/17/2023 You Hargrove Plan Of Treatment Next Appt Details Provider Name:You Hargrove , 05/10/2025 11:00:00 AM, [address] [place] [address], [address], [place], [address], Progress Notes * BRADLEY ESPOSITO LDOB:[birth year] (77 yo F)Acc No.[id number]:09/17/2023 Patient:?BRADLEY ESPOSITO :1945???Age:77 Y???Sex:Female Address:[address] [place] [id number] * true * Date:? Generated for Printi [email or web address]/eTransmitting on:?01/14/2025 12:46 PM EDT
[2025-01-14 13:39] VITALS: BP 167/77; PULSE 59; BMI 21.8
--- NOTE | 2025-01-14 13:39 | MHC.OFFVIS ---
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 Allergies penicillin V Allergy (Unknown, Verified 01/14/25 13:44) Unknown lisinopril [From Zestril] Adverse Reaction (Intermediate, Verified 01/14/25 13:44) cough Medication List - Last Reconciled 01/14/25 by SELINA Castellanos albuterol sulfate 90 mcg/actuation 2 puffs inhalation Q4-6H PRN amlodipine (Norvasc) 5 mg PO DAILY atenolol 25 mg PO DAILY atorvastatin 40 mg PO DAILY budesonide DR-ER 3 mg PO QAM flecainide 100 mg PO Q12H hydrochlorothiazide 12.5 mg PO DAILY levothyroxine 125 mcg PO DAILY losartan 50 mg PO BID warfarin 2.5 mg PO BEDTIME HPI HPI [facility] [place] follow up: Details: Shivani is a 79-year-old female with past medical history of hypertension, nonobstructive coronary disease, paroxysmal atrial fibrillation who was recently admitted [facility] with episodes of presyncope and falls. She was noted to have bradycardia with heart rate in the 40s to 50s and was reported to be normotensive at that time. Her lab work did show evidence of mild dehydration and she was given IV fluids. Her atenolol dose was reduced from 100 mg daily down to 25 mg daily. Today she reports that since her hospital discharge she has had issues with lightheadedness but has not had presyncope or syncope. She tells me that her presyncope had occurred on 3 separate mornings in 1 week. She did sustain injuries to her knees when she fell. Her knees are improving and she is still in physical therapy. She has been monitoring her heart rate and blood pressure at home and brings in a list for me to review today. She has done standing blood pressures and find them to be in the 80s to 90s systolic at home. Her sitting readings are 110s to 120s normally at home. Her heart rate has been mostly in the 60s. She is still noticing symptoms of dizziness with position changes. She tells me that she hydrates well and has been drinking 1 electrolyte packet in her water daily. No chest discomfort at rest or with activity. No shortness of breath, PND, orthopnea or edema. Compliant with her meds. [facility] Medical History Paroxysmal atrial fibrillation HTN (hypertension) Family History Father Cancer Mother No problems noted. Review of Systems Const All systems reviewed & are unremarkable except as noted in HPI and below ENT Details: presyncope, falls Reports dizziness Card Denies chest pain, Denies chest pain at rest, Denies chest pain with activity, Denies rapid heart rate, Denies pedal edema, Denies edema, Denies leg edema, Denies lightheadedness, Denies palpitations, Denies dyspnea, Denies dyspnea on exertion and Denies orthopnea Resp Denies cough, Denies dyspnea and Denies dyspnea on exertion GI Denies hematochezia and Denies change in stool character Musc Details: knee pain from falls, improving Denies abnormal gait, Denies limited range of motion, Denies muscle cramps, Denies muscle weakness, Denies numbness, Denies radiating pain into limb, Denies stiffness and Denies tingling Neuro Denies abnormal gait, Reports dizziness, Denies numbness and Denies tingling Endo Denies palpitations Physical Exam Vital Signs: Last Vital Signs Pulse 67 01/14/25 13:53 BP 172/85 H 01/14/25 13:53 BMI result Body Mass Index 21.8 Const General: cooperative, healthy appearing, comfortable and no acute distress Orientation/consciousness: patient oriented x3 Neck Neck: Yes normal visual inspection Chest Chest palpation & inspection: normal inspection of the chest Resp Effort & Inspection: normal respiratory effort Auscultation: clear to auscultation bilaterally, no rales, no rhonchi and no wheezes Cardio Rate: regular rate Rhythm: regular rhythm Heart sounds: S1 normal heart sound present, S2 normal heart sound present, no gallops, no murmurs and no rubs Neuro General: patient oriented x3 Extrem General: Yes normal to inspection, No no pedal edema and No calf tenderness Psych Appearance: grossly normal Mental Status: mental status grossly normal Speech and movement: Normal speech and movement present Office Procedures EKG Details: Today, read by me, sinus rhythm with first-degree AV block, rate 60, QTC 464 milliseconds [id number], Complete Results Reviewed Results Reviewed: Conclusions: - The left ventricular systolic function is normal. The calculated ejection fraction is 57% by biplane method. - Evidence suggests grade II (moderate) diastolic dysfunction. - No obvious valvular pathology seen on this study. Assessment & Plan Assessment & Plan (1) Pre-syncope: Code(s): R55 - Syncope and collapse Category: Medical Plan: Recent [facility] evaluation for presyncope. She had minor electrolyte abnormalities and was noted to have bradycardia. Her atenolol dose was reduced and she was given IV fluids. She was not noted to be hypotensive at that time. EKG done today is showing sinus rhythm with first-degree AV block, rate 60. Will have her continue flecainide and her atenolol 25 mg daily. Will check Holter monitor to assess for significant bradycardia, heart block or pauses. Her last echo showed normal EF, grade 2 diastolic dysfunction, no significant valve abnormalities. Her home blood pressures do show evidence of orthostatic hypotension however blood pressure here today is elevated. Her blood pressure seemed to be labile. With a recent mild dehydration at her ER visit and labile readings will have her reduce her hydrochlorothiazide down to 12.5 mg daily. Continue amlodipine, atenolol, losartan at current doses. Will plan to have our nurse call her in 1 week to reassess home blood pressure readings. Further medication adjustments will be made as needed. Cardiology follow-up as planned for March. (2) Bradycardia: Code(s): R00.1 - Bradycardia, unspecified Category: Medical Plan: [facility] discharge notes indicate bradycardia with heart rates 40s to 50s. Her atenolol dose was reduced to 25 mg daily. She was continued on flecainide. EKG today is showing sinus rhythm with first-degree AV block, rate 60. Checking Holter. (3) HTN (hypertension): Code(s): I10 - Essential (primary) hypertension Category: Medical Plan: Blood pressure goal less than 130/80. She seems to have labile readings. Home readings lower than office reading today. Will try reduction and hydrochlorothiazide due to her orthostatic lightheadedness and documentation of low standing pressures at home with systolics into the 80s. Reviewed good hydration with her. (4) Paroxysmal atrial fibrillation: Code(s): I48.0 - Paroxysmal atrial fibrillation Category: Medical Plan: History of paroxysmal atrial fibrillation that is currently suppressed with flecainide and low-dose atenolol. She is currently in sinus rhythm. She is on Coumadin for anticoagulation and follows with the [facility]. INR goal 2-3. (5) CAD (coronary artery disease): Code(s): I25.10 - Atherosclerotic heart disease of [place] coronary artery without angina pectoris Category: Medical Plan: History of nonobstructive CAD. No reports of anginal sounding symptoms. Continue atorvastatin with ideal LDL goal less than 70. Continue atenolol. She is not on aspirin since she is on Coumadin. (6) Hospital discharge follow-up: Code(s): Z09 - Encounter for follow-up examination after completed treatment for conditions other than malignant neoplasm Category: Medical Plan: Discharge summary reviewed. Plan I discussed with the patient the Finding of recent presyncope and bradycardia, resulting in reduction in atenolol dose. For her atrial fibrillation the management involves flecainide and atenolol. The need to adjust hypertension medications due to dizziness was addressed by reducing hydrochlorothiazide and maintaining good hydration. Risk of potential rebound hypertension following medication changes, were thoroughly explained. The advantages of alternative strategies for electrolyte supplementation without added sugar were mentioned. I recommended a heart monitor for rhythm assessment. Future medication adjustments will be made based on symptom tracking and blood pressure. Orders: Orders ECG 3 day holter monitor Today I48.0 - Paroxysmal atrial fibrillation Medications: New hydrochlorothiazide dose reduced 12.5 mg PO DAILY 30 tabs 5RF Patient Instructions: - Take medications as prescribed, reducing hydrochlorothiazide to 12.5mg daily. - Drink plenty of water; use a no-sugar electrolyte supplement. - Monitor blood pressure regularly. - Attend scheduled physical therapy sessions and appointment for heart monitor. - Expect a call from the office nurse in about a week. - Contact if experiencing increased dizziness or other symptoms. Patient was informed and verbally consented to the use of an ambient scribe for clinic note documentation during this visit. Visit time spent on chart review, interview, assessment, orders, documentation. Coding Level of Care Code Est Pt Level 4 (49696) Complex EM visit Add On G2211 Diagnoses Pre-syncope R55 Bradycardia R00.1 HTN (hypertension) I10 Paroxysmal atrial fibrillation I48.0 CAD (coronary artery disease) I25.10 Hospital discharge follow-up Z09 CPT Codes EKG - CPT: 05378-[id number], Complete ([id number]) Time Spent (min) 32
[2025-01-14 13:53] VITALS: BP 172/85; PULSE 67
== END 2025-01-14 14:18 | disposition home or self-care (01) ==
LOC: HO.HCS 12:45
PROVIDERS: PCP Internal Medicine; Visit Provider Nurse Practitioner Family
DX: R55 Syncope and collapse (principal); R00.1 Bradycardia, unspecified; I10 Essential (primary) hypertension; I48.0 Paroxysmal atrial fibrillation; I25.10 Atherosclerotic heart disease of native coronary artery without angina pectoris; Z09 Encounter for follow-up examination after completed treatment for conditions other than malignant neoplasm
CPT/HCPCS: 93010; 99214; G2211

== ENCOUNTER → 2025-01-14 12:44 | Outpatient (BNVA) | payer MEDICARE, SELFPAY | PROVIDERS: PCP Internal Medicine; Visit Provider Nurse Practitioner Family | DX: R55 Syncope and collapse (principal); I10 Essential (primary) hypertension; R00.1 Bradycardia, unspecified; I48.0 Paroxysmal atrial fibrillation; I25.10 Atherosclerotic heart disease of native coronary artery without angina pectoris; Z09 Encounter for follow-up examination after completed treatment for conditions other than malignant neoplasm | CPT/HCPCS: 93005; 99212 ==

== ENCOUNTER → 2025-01-26 13:29 | Outpatient (REF) | payer MEDICARE, SELFPAY ==
--- OUTSIDE RECORDS SUMMARY | 2023-09-17 10:31 | XMS_ITS ---
Author Organization [facility] Address [address] [place] [phone] Care Team Providers Care Life Sciences Instructor Name Role Phone Darryl CASILLAS, [facility] Primary Care Provide r You Bhatti [phone] REASON FOR VISIT refill request for budesonide-needs a paper Rx Encounters Encounter Location Date Provider Diagnosis [facility] [address] [place] [phone] 09/17/2023 You Hargrove Plan Of Treatment Next Appt Details Provider Name:You Hargrove , 05/10/2025 11:00:00 AM, [address] [place] [address], [address], [place], [phone], Progress Notes * BRADLEY ESPOSITO LDOB:[birth year] (77 yo F)Acc No.[id number]:09/17/2023 Patient: Juan C LANDRYBRADLEY :1945 A ge:77 Y S ex:Female Address:[address] [place] [id number] * true * Date: Generated for Printi ng/Fapanchitog/eTransmitting on: 01/26/2025 03:24 PM EDT
--- NOTE | 2025-01-26 13:33 | HM_ITS ---
Conclusion: 1. Patient was monitored for total period of 2 days and 23 hours 2. Baseline was normal sinus rhythm with average heart of 63 beats per minute 3. No significant pauses noted 4. Frequent PACs noted with total burden of 1.4% without any runs of atrial fibrillation 5. Patient marked the counter 5 times with symptoms of skipped heartbeat correlating with mostly normal sinus rhythm MTDD
== END ==
LOC: HO.CARD 13:29
PROVIDERS: Visit Provider Nurse Practitioner Family
DX: I48.0 Paroxysmal atrial fibrillation (principal)
CPT/HCPCS: 93242

== ENCOUNTER → 2025-01-26 13:33 | Outpatient (BNV) | payer MEDICARE, SELFPAY | PROVIDERS: Visit Provider Internal Medicine Cardiovascular Disease | DX: I49.1 Atrial premature depolarization (principal) | CPT/HCPCS: 93244 ==

== ENCOUNTER → 2025-04-04 10:38 | Outpatient (BNVA) | payer MEDICARE, SELFPAY | DX: I48.0 Paroxysmal atrial fibrillation (principal); I25.10 Atherosclerotic heart disease of native coronary artery without angina pectoris; R09.89 Other specified symptoms and signs involving the circulatory and respiratory systems; Z79.01 Long term (current) use of anticoagulants; Z79.899 Other long term (current) drug therapy | CPT/HCPCS: 93005; 99212 ==

== ENCOUNTER 2025-04-04 11:12 | Outpatient (AMB) | payer MEDICARE, SELFPAY ==
[2025-04-04 11:13] VITALS: BP 174/86; PULSE 61; BMI 22.1
--- NOTE | 2025-04-04 11:13 | MHC.OFFVIS ---
Vital Signs 04/04/25 11:13 Height 5 ft 1 in Weight 116 lb 13.52 oz BMI 22.1 BP 174/86 H Blood Pressure Location Lt brachial Position Sitting Pulse 61 Intake Visit Reasons: 2m follow up/ holter Intake Note: 2 month follow-up after holter with ekg feeling ok Resistor Inspector Required: No Production Officer: Production Officer Present Accompanied by: Other Relationship Allergies penicillin V Allergy (Unknown, Verified 01/14/25 13:44) Unknown lisinopril (From Zestril) Adverse Reaction (Intermediate, Verified 01/14/25 13:44) cough Medication List - Last Reconciled 04/04/25 by Varinder Palafox MD albuterol sulfate 90 mcg/actuation 2 puffs inhalation Q4-6H PRN amlodipine (Norvasc) 2.5 mg (1/2 x 5 mg) PO DAILY atenolol 25 mg PO DAILY atorvastatin 40 mg PO DAILY budesonide DR-ER 3 mg PO QAM budesonide-formoterol 160-4.5 mcg/actuation (Breyna) 2 puffs inhalation BID flecainide 100 mg PO Q12H levothyroxine 125 mcg PO DAILY losartan 50 mg PO BID warfarin 2.5 mg PO BEDTIME HPI Comments Details: Shivani comes for follow-up, accompanied by her friend. She has significant issues with low blood pressure orthostatic hypotension. 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 She had fainted 1 time with low blood pressure and had gone to the emergency room at [facility]. She will call or office and amlodipine was reduced at 2.5 mg. However if she takes all medications in the morning. She comes in today and a blood pressure is significantly elevated. This was confirmed by and calibrated with her own machine. She still gets intermittently low blood pressures in the morning. She is drinking about 48 oz of fluid but also drinking electrolyte solution. She denies any episodes of atrial fibrillation. Recent Holter monitor did not show any evidence of atrial fibrillation. [facility] Medical History Paroxysmal atrial fibrillation HTN (hypertension) Family History Father Cancer Mother No problems noted. Review of Systems Const Denies chills, Denies fatigue, Denies fever(s), Denies frequent falls, Denies weakness, Denies weight gain and Denies weight loss ENT Denies dizziness Card Denies chest pain, Denies leg edema, Denies lightheadedness, Denies palpitations, Denies dyspnea, Denies dyspnea on exertion, Denies orthopnea and Denies other (loss of consciousness) Resp Denies cough, Denies dyspnea and Denies dyspnea on exertion GI Denies hematochezia and Denies change in stool character Musc Denies abnormal gait, Denies muscle weakness, Denies numbness, Denies radiating pain into limb and Denies tingling Neuro Denies abnormal gait, Denies dizziness, Denies frequent falls, Denies numbness, Denies tingling and Denies weakness Endo Denies fatigue and Denies palpitations Physical Exam Vital Signs: Last Vital Signs Pulse 61 04/04/25 11:13 BP 174/86 H 04/04/25 11:13 BMI result Body Mass Index 22.1 Const General: cooperative, healthy appearing, comfortable and no acute distress Orientation/consciousness: patient oriented x3 Neck Neck: Yes normal visual inspection Chest Chest palpation & inspection: normal inspection of the chest Resp Effort & Inspection: normal respiratory effort Auscultation: clear to auscultation bilaterally, no rales, no rhonchi and no wheezes Cardio Rate: regular rate Rhythm: regular rhythm Heart sounds: S1 normal heart sound present, S2 normal heart sound present, no gallops, no murmurs and no rubs Neuro General: patient oriented x3 Extrem General: Yes normal to inspection, No no pedal edema and No calf tenderness Psych Appearance: grossly normal Mental Status: mental status grossly normal Speech and movement: Normal speech and movement present Office Procedures EKG Details: EKG shows normal sinus rhythm with right bundle-branch block otherwise normal EKG [id number], Complete Assessment & Plan Assessment & Plan (1) Paroxysmal atrial fibrillation: Code(s): I48.0 - Paroxysmal atrial fibrillation Category: Medical Plan: Paroxysmal atrial fibrillation suppressed on current therapy with flecainide along with low-dose atenolol therapy. Heart rate has remained stable with no significant bradycardia. At this point time continue flecainide therapy has helped significantly with rhythm control approach. Currently on warfarin therapy being followed by [facility]. Maintain target INR between 2 and 3. Some control was discussed and she understands agrees. Stress mitigation strategies were discussed. (2) CAD (coronary artery disease): Code(s): I25.10 - Atherosclerotic heart disease of [place] coronary artery without angina pectoris Category: Medical Plan: CAD nonobstructive. Continue aggressive medical therapy. Currently on full oral anticoagulation with warfarin. Continue high-intensity statin therapy with target goal LDL less than 70 mg/dL. No further workup is indicated from this perspective. (3) Labile blood pressure: Code(s): R09.89 - Other specified symptoms and signs involving the circulatory and respiratory systems Category: Medical Plan: Significantly labile blood pressure with episodes of low blood pressure falling. This is probably suggestive of senile orthostatic hypotension syndrome. We discussed about changing her medical therapy and switching her amlodipine to nighttime. Also advised to increase oral intake of fluid. Orthostatic precautions were discussed. Advised to continue monitor blood pressure and maintain a log. Follow up in the clinic in 2 weeks. Advised to avoid low-salt diet. Will follow up in the clinic in 6 months time, sooner p.r.n.. Thank you for allowing me to partake in her care Medications: Changed From amlodipine (Norvasc) 2.5 mg (1/2 x 5 mg) PO DAILY 90 tabs 3RF To amlodipine (Norvasc) 2.5 mg (1/2 x 5 mg) PO QPM 90 tabs 3RF Coding Level of Care Code Est Pt Level 4 (62603) Complex EM visit Add On G2211 Diagnoses Paroxysmal atrial fibrillation I48.0 CAD (coronary artery disease) I25.10 Labile blood pressure R09.89 CPT Codes EKG - CPT: 96852-[id number], Complete ([id number])
== END 2025-04-04 12:06 | disposition home or self-care (01) ==
LOC: HO.HCS 11:12
PROVIDERS: PCP Internal Medicine; Visit Provider Internal Medicine Cardiovascular Disease
DX: I48.0 Paroxysmal atrial fibrillation (principal); I25.10 Atherosclerotic heart disease of native coronary artery without angina pectoris; R09.89 Other specified symptoms and signs involving the circulatory and respiratory systems
CPT/HCPCS: 93010; 99214; G2211

== ENCOUNTER 2025-06-10 13:13 | Outpatient (AMB) | payer MEDICARE, SELFPAY ==
[2025-06-10 13:18] VITALS: BP 124/70; PULSE 57; O2SAT 98; BMI 22.7
--- NOTE | 2025-06-10 13:18 | MHC.OFFVIS ---
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 She denies recent exacerbations. She tried Flonase however it did not significantly change her postnasal drip symptoms. Patient states that she is slowly developing worsening dyspnea. Patient did try using albuterol multiple times with essentially no effect on her dyspnea. No significant changes since prior. [facility] Medical History Paroxysmal atrial fibrillation HTN (hypertension) Family History Father Cancer Mother No problems noted. Social History (Updated 06/10/25 @ 13:24 by CASSANDRA Sanchez) Patient Tobacco Use Status: Former Tobacco user Review of Systems Const Denies daytime sleepiness, Denies excessive sweating, Denies fatigue, Denies fever(s), Denies lethargy, Denies malaise, Denies night sweats, Denies snoring and Denies weight loss Eyes Denies blurry vision and Denies itchy eyes ENT Denies nasal congestion, Denies post nasal drip, Denies sinus pain, Denies sinus pressure and Denies other ( Thrush) Card Denies chest pain, Denies pedal edema, Denies dyspnea, Denies orthopnea and Denies paroxysmal nocturnal dyspnea Resp Denies cough, Denies hemoptysis, Denies excessive phlegm production, Denies dyspnea, Denies snoring and Denies wheezing GI Denies abdominal pain and Denies heartburn Musc Denies myalgias, Denies arthralgias and Denies joint swelling Skin/Breast Denies rash Neuro Denies memory loss and Denies seizure-like activity Psych Denies abnormal sleep pattern, Denies anxiety and Denies memory loss Endo Denies excessive sweating, Denies fatigue and Denies heat intolerance George/Lymph Denies easy bruising Aller/Immun Denies itchy eyes, Denies seasonal rhinorrhea and Denies wheezing Physical Exam Vital Signs: Last Vital Signs Pulse 57 06/10/25 13:18 BP 124/70 06/10/25 13:18 Pulse Ox 98 06/10/25 13:18 Oxygen Delivery Method Room Air 06/10/25 13:18 BMI result Body Mass Index 22.7 Const General: no acute distress and alert Nutritional Appearance: not obese Orientation/consciousness: Other orientation findings ( oriented) HEENT Head: Yes atraumatic Eyes General: appearance normal, both eyes and all related structures Sclerae: sclerae normal EOM: EOMs intact bilaterally Neck Neck: Yes supple Lymphatic: no lymphadenopathy noted Resp Effort & Inspection: normal respiratory effort and no use of accessory muscles Auscultation: clear to auscultation bilaterally Cardio Rate: regular rate Rhythm: regular rhythm Heart sounds: no gallops, no murmurs and no rubs Skin General skin exam: other ( warm) Extrem General: No clubbing, No cyanosis and No edema Assessment & Plan Assessment & Plan (1) Emphysema lung: Code(s): J43.9 - Emphysema, unspecified Category: Medical Plan: Appears to be overall clinically silent. No response to albuterol or ics/laba. (2) SOB (shortness of breath) on exertion: Code(s): R06.02 - Shortness of breath Category: Medical Plan: Appears to have mostly cardiac etiology related to paroxysmal patient continues to follow-up with cardiology service. Coding Level of Care Code Est Pt Level 3 (15171) Diagnoses Emphysema lung J43.9 SOB (shortness of breath) on exertion R06.02
--- OUTSIDE RECORDS SUMMARY | 2025-06-10 14:20 | XMS_ITS | Clinical Summary ---
Author Organization [facility] Address [address] [place], [place] [id number] Phone Care Team Providers Care Resource Paraprofessional Name Role Phone Unknown, Unknown Primary Care Provider Jose Martin brooks Allergies Active Allergy Reactions Criticality Noted Date Comments Cefuroxime Axetil Unknown 08/14/2017 Cyclobenzaprine 08/14/2017 groggy Penicillins Hives 08/14/2017 Lisinopril Unknown 08/14/2017 Medications tretinoin (RETIN-A) 0.025 % gel APPLY ÁLVARO-SIZED AMOUNT TO FACE IN THE EVENING ONCE DAILY NEEDED 45 g 4 06/20/20 17 Active calcium carbonate-vitamin D3 (CALCIUM 600 + D,3,) 1,500 mg (600 mg elemental)-200 units Tab 1 TAB Active budesonide (ENTOCORT EC) 3 mg 24 hr capsule 1 capsule every morning Active flecainide (TAMBOCOR) 50 MG tablet 1 tablet 05/31/20 13 Active magnesium oxide (MAG-OX) 400 mg (240 mg elemental) tablet TAKE 1 TABLET BY MOUTH DAILY Active tiZANidine (ZANAFLEX) 4 MG tablet 1 tablet as needed Active tretinoin (RETIN-A) 0.025 % gel 1 application to affected area in the evening to face 10/18/19 17 Active tretinoin, bulk, Powd 1 application a álvaro-sized amount to face in the evening Active atenolol (TENORMIN) 100 MG tabletIndications: Hypertension Take 1 tablet (100 mg total) by mouth daily. 90 tablet 3 11/04/19 18 Active hydroCHLOROthiazid e (MICROZIDE) 12.5 mg capsuleIndications :Hypertension Take 1 capsule (12.5 mg total) by mouth daily. 90 capsule 3 11/14/19 18 Active traMADol (ULTRAM) 50 mg tablet Take 1 tablet (50 mg total) by mouth every 8 (eight) hours as needed. 90 tablet 2 12/02/19 18 Active levothyroxine (SYNTHROID, LEVOTHROID) 112 MCG tabletIndications: Acquired hypothyroidism Take 1 tablet (112 mcg total) by mouth daily. 90 tablet 3 02/10/20 18 Active losartan (COZAAR) 50 MG tabletIndications: Essential hypertension Take 1 tablet (50 mg total) by mouth daily. 90 tablet 3 05/06/20 18 Active Active Problems Problem Noted Date Diagnosed Date Atrial fibrillation 08/18/2017 Colitis 08/18/2017 Cough 08/18/2017 Fatigue 08/18/2017 Fever 08/18/2017 Headache 08/18/2017 Hypertension 08/18/2017 Hyperlipidemia 08/18/2017 Hypothyroidism 08/18/2017 Immunizations Immunization Administration Dates Next Due INFLUENZA, SPLIT VIRUS, TRIV ALENT W/ PRESERVATIVE IM 06/02/2014,06/04/2012,06/27/2011 Influenza High-Dose Trivalen t Preservative Free IM 07/03/2016,05/25/2015,06/07/2013 Pneumococcal conjugate PCV13 06/01/2015 Pneumococcal polysaccharide PPSV23 05/21/2012 Td (adult) 5 Lf Tetanus Toxo id, PF, Adsorbed 05/11/2007 Zoster live 09/11/2009 Family History Medical History Relation Comments Cancer Mother Heart disease Mother Relation Status Comments Father Alive Mother (Age 87) Social History Tobacco Use Types Packs/Day Years Used Date Smoking Tobacco: Former Cigarettes 0.5 20 Smokeless Tobacco: Never Comments:quit 11 years a go Alcohol Use Standard Drinks/Week Comments Yes 2 (1 standard drink = 0.6 oz pur e alcohol) Education Answer Date Recorded Are you interested in more education? Not on horacio e 12/06/2022 Are you concerned about learning? Not on file 12/06/2022 No 12/06/2022 No 12/06/2022 Digital Access Answer Date Recorded No 01/06/2023 No 01/06/2023 Reliable internet access at home? Not on file 01/06/2023 Device with a working camera? Not on file Comments Unknown Sex and Gender Information Value Date Recorded Sex Assigned at Not on file Legal Sex Female 10:08 PM EDT Gender Identity Not on file Sexual Orientation Not on file Last Filed Vital Signs Vital Sign Reading Time Taken Comments Blood Pressure 138/78 08/18/2017 1:13 PM EST Pulse 70 08/18/2017 1:13 PM EST Temperature 36.5 C (97.7 F) 08/18/2017 1:13 PM EST Respiratory Rate - - Oxygen Saturation 97% 08/18/2017 1:13 PM EST Inhaled Oxygen Concentration - - Weight 54.7 kg (120 lb 9.6 oz) 08/18/2017 1:13 P M EST Height 152.4 cm (5') 08/18/2017 1:13 PM EST Body Mass Index 23.55 08/18/2017 1:13 PM EST Plan of Treatment Health Maintenance Due Date Last Done Comments BLOOD PRESSURE 1945 LIPID PANEL 1945 POTASSIUM LEVEL 1945 SMOKING Hx and SMOKELESS TOBACCO SCREENING 1958 HEPATITIS C SCREENING 11/04/1963 ZOSTER VACCINES (2 of 3) 11/06/2009 09/11/2009 OSTEOPOROSIS SCREENING INITIAL (ONE-TIME) 2010 Adult Td,Tdap Booster 05/11/2017 05/11/2007 CREATININE LEVEL 08/18/2018 08/18/2017 DEPRESSION SCREENING 08/18/2018 08/18/2017 TSH LEVEL 08/18/2018 08/18/2017 RSV VACCINE (1 - 1-dose 75+ series) 2020 INFLUENZA VACCINE (#1) 2025 9, 06/01/2018, 07/03/2016, Additional history exists COVID-19 VACCINE ( season) 2025 11/16/2020 PNEUMOCOCCAL VACCINES (50+ years) Completed 06/01/2015, 05/21/2012 HEPATITIS A VACCINES Aged Out No long er eligible based on patient's age to complete this topic HIB VACCINES Aged Out No longer eligi ble based on patient's age to complete this topic MENINGOCOCCAL VACCINES (ACWY) Aged Out No longer eligible based on patient's age to complete this topic MENINGOCOCCAL VACCINES (B) Aged Out N o longer eligible based on patient's age to complete this topic Medical Devices Not on file Insurance MEDICARE PPO BLUE REPLACEMENT MEDICARE PPO BLUE REPLACEMENT MEDICARE PPO BLUE REPLACEMENT MEDICARE PPO BLUE REPLACEMENT MEDICARE PPO BLUE REPLACEMENT MEDICARE PPO BLUE REPLACEMENT MEDICARE PPO BLUE REPLACEMENT MEDICARE PPO BLUE REPLACEMENT Care Teams Resource Paraprofessional Relationship Specialty Start Date End Date Unknown, Unknown, PCP - General 06/03/18 Additional Source Comments The information contained in this document represents components of the legal health record. It is not the complete legal health record.[facility]
--- OUTSIDE RECORDS SUMMARY | 2025-06-10 14:20 | XMS_ITS | Patient Health Record ---
Author Organization [facility] Address [address] [place] [address] Care Team Providers Care Basket Bottom Machine Operator Name Role Phone Darryl CASILLAS, Luigi Primary Care Provide r Unavailable You Hargrove Unavailable [phone] Allergies Allergen (clinical drug ingredient) Drug/Non Drug Allergy documented on EMR Reaction Allergy Type Onset Date Status Penicillin Unknown Drug Allergy Active lisinopril Zestril Unknown Drug Allergy Active Reason For Referral Referring Provider First Name Keyla durand Referring Provider Last Name Darryl Referring Provider Speciality Internal M edicine Referred Organization [facility] Referred Provider You Hargrove Referred Address [address] [place] [address],[address],[place], [place],[address], Referred Provider Specialty Gastroentero logy General Notes Angelica Ocampo 2024 02:42:30 PM > requested [facility] referral from Dr. Jama's office for visit with Dr. Hargrove on 05-10-25 [phone] Referral Priority Routine Medications Medication SIG (Take, Route, Frequency, Duration) Notes Start Date End Date Status Atorvastatin Calcium 40 MG 1 tablet Oral ly Once a day Active Budesonide 3mg 1 every other day Active Budesonide 3 MG take one capsule by mouth every other day oral 1 capsule QOD; Duration: 200 days Active Flecainide Acetate 100 MG 1 tablet Orall y every 12 hrs Active tiZANidine HCl 4 MG 1 tablet as needed Orally every 8 hrs uses for sleep Not-Taking Magnesium 400 mg Act litzy Losartan Potassium 50 mg Active Warfarin Sodium 2.5 mg Active Atenolol 25 MG 1 tablet Once a day Active amLODIPine Besylate 2.5 MG 1 tablet Oral ly Once a day; Duration: 90 days Active hydroCHLOROthiazide 25 mg Not-Taking Advil Not-Taking Levothyroxine Sodium 112mcg Active Osteo Bi-Flex Regular Strength Not-Taking Calcium Active Immunizations Vaccine Route Administration Date Status Comme nts Influenza Unknown 05/17/2020 Administered Influenza Unknown 04/11/2021 Administered Influenza Unknown 04/30/2022 Administered Influenza Unknown 05/10/2024 Administered Social History Tobacco Use: Social History Observation Description Date Details (start date - stop date) Former Smoker NA - NA Tobacco Use/Smoking Question Answer Notes Patient is a former smoker How long has it been since you last smoked? > 10 years AUDIT-C (Standard) Question Answer Notes Did you have a drink contain ing alcohol in the past year? Yes How often did you have a dri nk containing alcohol in the past year? 2 to 4 times a month (2 points) How many drinks did you have on a typical day when you were drinking in the past year? 1 or 2 drinks (0 point) How often did you have six o r more drinks on one occasion in the past year? Never (0 point) Points 2 Interpretation Negative Section Notes: Nonsmoker x 5 years; no sign ificant alcohol use Nonsmoker x 6 years; no sign ificant alcohol use Nonsmoker x 6 years; no sign ificant alcohol use Nonsmoker x 6 years; no sign ificant alcohol use Nonsmoker x 11 years; no sig nificant alcohol use Nonsmoker x 11 years; no sig nificant alcohol use Nonsmoker x 11 years; no sig nificant alcohol use Nonsmoker x 11 years; no sig nificant alcohol use Nonsmoker > 10 years; no sig nificant alcohol use Nonsmoker > 10 years; no sig nificant alcohol use Problems Problem Type SNOMED Code ICD Code Onset Dates Problem Status W/U Status Risk Notes Problem Screening for malignant neoplasm of colon (981821246) Encounter for screening for malignant neoplasm of colon (Z12.11) Active confirmed Problem Microscopic colitis (720224702) Microscopic colitis (K52.89) Active confirmed Problem Lymphocytic colitis (1330220291) Lymphocytic colitis (K52.832) Active confirmed Vital Signs Temperature 96.9 degrees Fahrenheit 05/10/2025 Blood pressure diastolic 01 mm Hg 05/10/2025 Height 60.5 in 05/10/2025 Blood pressure systolic 001 mm Hg 05/10/2025 Weight 119.8 lbs 05/10/2025 BMI 23.01 kg/m2 05/10/2025 Encounters Encounter Location Date Provider Diagnosis [facility] [address] [place] [address] 05/10/2025 You Hargrove Microscopic colitis K52.89 [facility] [address] [place] [address] 07/29/2024 You Hargrove Assessments Encounter Date Diagnosis (ICD Code) Assessment Notes Treatment Notes Treatment Clinical Notes Section Notes 05/10/2025 Microscopic colitis (ICD-10 - K52.89) Continue the 3 mg budesonide every other day for the microscopic colitis Overall, Bradley appears quite well. Her microscopic colitis remains in clinical remission on the current regimen of the 3 mg budesonide every other day. She does not appear to be having any adverse effect in relation to that treatment and therefore I advised her to continue it as it is working well for her. Given her age and previous colonoscopy findings, I do not think she would need any further screening colonoscopies. I did advise her to continue her current supplements including the vitamin D and calcium, particularly while on the budesonide. I will plan to see her again in 1 year for a follow-up visit but did advise her to certainly call if she has any problems or questions I can be of assistance with in the interim. Bradley was very comfortable with this plan. Thank you again for allowing me to participate in Bradley's care. I shall continue to keep you advised of her progress. Plan Of Treatment Next Appt Details Provider Name:You Hargrove , 05/16/2026 01:00:00 PM, [address], [address], [place], [address], Insurance Providers Payer Name Payer Address Payer Phone Subscriber Number Group Number Insured Name Patient Relationship to Insured Coverage Start Date Coverage End Date [facility] [address] [address] [place] [id number] EDGARBRADLEY DIAZ Self - patient is the insured Medical (General) History Medical History History ICD Code Microscopic colitis- diagnos ed in 03/2008-diagnosed via colonoscopy in 03/2008; had a neg. colonoscopy in 2003. She has been treated with various mesalamine products without improvement, and attempts at completely stopping the budesonide were associated with worsening symptoms of the colitis. Hypertension Hypothyroidism A fib- Dr. Palafox Hyperlipidemia Denies MD,DM,CVA,Lung disease,renal dise ase Bone density study in May [address] Wilkes Negative screening colonoscopy in 10/2018 Arthritis Macular degeneration Emphysema-sees Dr. Ibrahim Surgical History Surgery Date(Month/Year) Left carpal tunnel 05/12/2023 Cataracts Subtotal thyroidectomy Nasal septoplasty D&C Hospitalization History Reason Date(Month/Year) Blood pressure 12/09
== END 2025-06-10 13:32 | disposition home or self-care (01) ==
LOC: HO.HPS 13:14
PROVIDERS: PCP Internal Medicine; Visit Provider Internal Medicine Pulmonary Disease
DX: J43.9 Emphysema, unspecified (principal); R06.02 Shortness of breath
CPT/HCPCS: 99213

== ENCOUNTER → 2025-06-10 13:13 | Outpatient (BNVA) | payer MEDICARE, SELFPAY | PROVIDERS: PCP Internal Medicine; Visit Provider Internal Medicine Pulmonary Disease | DX: J43.9 Emphysema, unspecified (principal); R06.02 Shortness of breath | CPT/HCPCS: 99212 ==